=== PATIENT | female | born 1965 | race Caucasian/White ===

== ENCOUNTER → 2016-07-09 | Outpatient (REF) | payer BC | END | disposition home or self-care (01) | LOC: M LAB REF 16:39 | PROVIDERS: ATTEND Nurse Practitioner Family | DX: M79.1 Myalgia (principal) ==

== ENCOUNTER → 2016-07-26 | Outpatient (REF) | payer BC | END | disposition home or self-care (01) | LOC: M LAB REF 15:58 | PROVIDERS: ATTEND Nurse Practitioner Family | DX: M79.1 Myalgia (principal) ==

== ENCOUNTER → 2016-10-23 | Outpatient (REF) | payer BC | LOC: M LAB REF 09:07 | PROVIDERS: ATTEND Internal Medicine Medical Oncology | DX: D69.1 Qualitative platelet defects (principal) ==

== ENCOUNTER → 2016-11-10 | Outpatient (REF) | payer BC | LOC: M LAB REF 14:00 | PROVIDERS: ATTEND Physician Assistant | DX: T81.31XA Disruption of external operation (surgical) wound, not elsewhere classified, initial encounter (principal); X58.XXXA Exposure to other specified factors, initial encounter; Y92.9 Unspecified place or not applicable; Y93.9 Activity, unspecified; Y99.9 Unspecified external cause status ==

== ENCOUNTER → 2017-11-14 | Outpatient (REF) | payer BC ==
[2017-11-17 10:30] LABS: VITAMIN B12 LEVEL 653 PG/ML
== END ==
LOC: M LAB REF 17:51
DX: R41.3 Other amnesia (principal)
CPT/HCPCS: 82746

== ENCOUNTER → 2018-01-06 | Outpatient (CLI) | payer BC ==
[2018-01-06 09:12] LABS: ESTIMATED AVERAGE GLUCOSE 128 MG/DL (60-110); HEMOGLOBIN A1c 6.1 %
[2018-01-06 09:17] LABS: CHOLESTEROL LEVEL 205 MG/DL (<200); CHOLESTEROL RISK RATIO 4.361 (<5); GLUCOSE, FASTING 124 MG/DL (70-100); HDL CHOLESTEROL 47 MG/DL (>40); LDL CHOLESTEROL 95.6 MG/DL (<100); NON-HDL-C 158 MG/DL; TRIGLYCERIDES LEVEL 312 MG/DL (<150)
== END ==
LOC: M WUC 08:08
DX: Z79.899 Other long term (current) drug therapy (principal)
CPT/HCPCS: 82947

== ENCOUNTER 2018-04-19 16:38 | Emergency (ER) | payer BC ==
[2018-04-19] MEDS: KETOROLAC 30 MG/ML VIAL (J1885) IV (17:29)
[2018-04-19] MEDS: ONDANSETRON 4MG/2ML VIAL (J2405) IV (17:29)
[2018-04-19] MEDS: NS 1,000 ML IV (17:30)
[2018-04-19 17:55] LABS: BASO # 0.1 10^3/uL (0.0-0.2); BASO % 0.8 % (0.0-1.0); EOS # 0.4 10^3/uL (0.0-0.50); EOS % 3.9 % (0.0-3.0); HEMATOCRIT 38.6 % (36.0-47.0); IMMATURE GRANULOCYTE % 0.4 % (0-3.0); LYMPH % 19.3 % (24.0-44.0); MEAN CORPUSCULAR HEMOGLOBIN 33.4 pg (27.0-33.0); MEAN CORPUSCULAR HGB CONC 33.7 g/dl (32.0-36.5); MEAN CORPUSCULAR VOLUME 99.2 fl (80.0-96.0); MONO # 0.9 10^3/uL (0.0-0.8); MONO % 8.3 % (0.0-5.0); NEUTROPHILS # 7.1 10^3/uL (1.8-7.7); NEUTROPHILS % 67.3 % (36.0-66.0); PLATELET COUNT, AUTOMATED 296 10^3/uL (150-450); RED BLOOD COUNT 3.89 10^6/uL (4.00-5.40); RED CELL DISTRIBUTION WIDTH 13.3 % (11.5-14.5); WHITE BLOOD COUNT 10.6 10^3/uL (4.0-10.0)
[2018-04-19 18:13] LABS: ALBUMIN 3.8 GM/DL (3.2-5.2); ALBUMIN/GLOBULIN RATIO 1.09 (1.00-1.93); ALKALINE PHOSPHATASE 65 U/L (45-117); ALT/SGPT 64 U/L (12-78); ANION GAP 10 MEQ/L (8-16); AST/SGOT 41 U/L (7-37); BILIRUBIN,TOTAL 0.5 MG/DL (0.2-1.0); BLOOD UREA NITROGEN 19 MG/DL (7-18); CALCIUM LEVEL 8.9 MG/DL (8.5-10.1); CARBON DIOXIDE LEVEL 26 MEQ/L (21-32); CHLORIDE LEVEL 106 MEQ/L (98-107); CREATININE FOR GFR 0.87 MG/DL (0.55-1.30); GLOMERULAR FILTRATION RATE > 60.0 (>51); GLUCOSE, FASTING 110 MG/DL (70-100); POTASSIUM SERUM 3.6 MEQ/L (3.5-5.1); SODIUM LEVEL 142 MEQ/L (136-145); TOTAL PROTEIN 7.3 GM/DL (6.4-8.2)
== END 2018-04-19 19:35 | disposition home or self-care (01) ==
LOC: M ED 16:38
DX: G43.909 Migraine, unspecified, not intractable, without status migrainosus (principal); E86.0 Dehydration; E87.6 Hypokalemia; M79.7 Fibromyalgia; M31.5 Giant cell arteritis with polymyalgia rheumatica; Z88.1 Allergy status to other antibiotic agents; Z88.7 Allergy status to serum and vaccine; Z88.8 Allergy status to other drugs, medicaments and biological substances; Z79.899 Other long term (current) drug therapy
CPT/HCPCS: J2405

== ENCOUNTER 2018-05-29 09:33 | Day surgery (SDC) | payer BC ==
[2018-05-29] MEDS ORDERED: LR 1,000 ML IV ×2 (10:00→15:00)
[2018-05-29 10:49] LABS: BEDSIDE GLUCOSE 106 MG/DL (70-105)
[2018-05-29] MEDS ORDERED: LIDOCAINE 2% INJ 100 MG/5 ML SDV (FOR ANES.) As Ordered (12:30)
[2018-05-29] MEDS ORDERED: KETOROLAC 60 MG/2 ML VIAL (J1885) As Ordered (12:30)
[2018-05-29] MEDS ORDERED: fentaNYL 100 MCG/2 ML INJECTION (J3010) As Ordered (12:30)
[2018-05-29] MEDS ORDERED: ONDANSETRON 4MG/2ML VIAL (J2405) As Ordered (12:30)
[2018-05-29] MEDS ORDERED: MIDAZOLAM INJ 2 MG/2 ML VIAL (J2250) As Ordered (12:30)
[2018-05-29] MEDS ORDERED: PROPOFOL 200 MG/20 ML VIAL As Ordered ×5 (12:30→13:43)
[2018-05-29] MEDS: LIDOCAINE 2% MDV 20 ML VIAL As Ordered (12:31)
[2018-05-29] MEDS: BUPIVACAINE HCL 0.5% 30 ML VIAL As Ordered (12:31)
[2018-05-29] MEDS: NEOSPORIN GU IRRIG 20 ML VIAL As Ordered (13:02)
[2018-05-29] MEDS: BACITRACIN PWD 50,000 UNITS VIAL As Ordered (13:02)
[2018-05-29] MEDS: dexameTHASONE 4 MG/ML 1ML VIAL (J1100) As Ordered (14:20)
[2018-05-29] MEDS ORDERED: ONDANSETRON 4MG/2ML VIAL (J2405) IV (15:00)
[2018-05-29] MEDS: PERCOCET 5MG/325MG TAB PO (15:10)
== END 2018-05-29 16:27 | disposition home or self-care (01) ==
LOC: M SDC 09:33
DX: M20.11 Hallux valgus (acquired), right foot (principal); M79.671 Pain in right foot; T84.223A Displacement of internal fixation device of bones of foot and toes, initial encounter; E78.5 Hyperlipidemia, unspecified; E11.9 Type 2 diabetes mellitus without complications; E03.9 Hypothyroidism, unspecified; K21.9 Gastro-esophageal reflux disease without esophagitis; M79.7 Fibromyalgia; M35.3 Polymyalgia rheumatica; G47.30 Sleep apnea, unspecified; Z88.7 Allergy status to serum and vaccine; Z88.1 Allergy status to other antibiotic agents; Z79.899 Other long term (current) drug therapy
CPT/HCPCS: 28297

== ENCOUNTER → 2018-06-29 | Outpatient (CLI) | payer BC ==
[~2018-06-29] MED LIST: ACTE20IN SQ; ASPI1TAB PO; AZAT50TA2 PO; BRIM1OPD OU; BUPR300T34 PO; COSO1SOL3 OU; DULO1CAP2 PO; DULO1CAP3 PO; FISH7.5C PO; KLOR10TA76 PO; LEVO112T2 PO; METF-839 PO; METO10TA2 PO; MOBI4TAB PO; MONT10TA2 PO; OMEP20CA3 PO; PRAV80TA2 PO; PRED5TA PO; PROAAER10 INH; ROPI1TAB PO; TORS20TA2 PO; XALA0.007 OU; ZONI100C2 PO
--- NOTE | 2018-06-29 18:45 | REPMRS ---
Patient History The patient states she had a clinical breast exam in December 2017.Family history of breast cancer at age 50 or over in paternal grandmother. Digital Mammo Screening Bilat: June 29, 2018 - Exam #: [id number] Bilateral CC and MLO view(s) were taken. Technologist: Michelle Mehta, Technologist Prior study comparison: February 21, 2015, bilateral digital mammo screening bilat performed at [facility]. March 30, 2007, bilateral mammogram performed at [facility]. March 06, 2006, bilateral mammogram performed at [facility]. FINDINGS: There are scattered fibroglandular densities. There has been no change in the appearance of the mammogram from the prior studies. There is a mild amount of scattered fibroglandular density which is fairly symmetric. There is no interval development of dominant mass, architectural distortion, or clustered microcalcification suggestive of malignancy. 3-D tomosynthesis shows no additional findings. Assessment: BI-RADS/ACR category 1 mammogram. Negative. Recommendation Routine screening mammogram of both breasts in 1 year (for women over age 40). This patient's Lifetime Breast Cancer RIsk is estimated at 17.9 %. This mammogram was interpreted with the aid of an FDA-approved computer-aided dectection system. Electronically Signed By: Konrad Stout MD 06/29/18 [id number]
--- NOTE | 2018-07-13 15:25 | REP ---
Clinical: Abnormal uterine bleeding given history of cervical polyp. Technique: Transabdominal pelvic ultrasound followed by transvaginal examination for better evaluation of the endometrium and adnexa with color Doppler evaluation of the ovaries. Findings: Bladder is unremarkable and measures 7.4 x 5.2 x 5.8 cm . Heterogeneous anteverted uterus measures 7.7 x 3.2 x 3.8 cm. The endometrial complex measures 3.2 mm thickness. Few scattered incidental myometrial calcifications noted. No discrete uterine or endometrial abnormalities are appreciated. No obvious uterine or cervical polyp identified. Right ovary measures 2.5 x 2.4 x 1.5 cm and is without evidence for torsion. Left ovary measures 4.4 x 3.4 x 3.6 cm including follicles/physiologic cysts up to 1.4 cm and is without evidence for torsion. No pelvic fluid or adnexal mass lesion . Impression: 1. Heterogeneous anteverted uterus without significant abnormality appreciated. No obvious uterine or cervical polyp identified. 2. Bilateral ovaries are relatively normal in appearance and without obvious torsion or abnormality. Electronically Signed by Cholo Verdin MD 07/13/2018 03:17 P
== END ==
LOC: M RAD 11:03
PROVIDERS: ATTEND Obstetrics & Gynecology
DX: Z12.31 Encounter for screening mammogram for malignant neoplasm of breast (principal); N93.9 Abnormal uterine and vaginal bleeding, unspecified

== ENCOUNTER 2018-07-20 08:06 | Day surgery (SDC) | payer BC ==
--- NOTE | 2018-07-15 07:30 | CR ---
DATE OF CONSULTATION: 07/14/[address] Arellano for cervical polyp biopsy on 07/20/2018. Dear Dr. Arellano: Than you for asking me to see Ms. Allyson Rios in consultation. She is as you know a 53-year-old female with a history of polymyalgia rheumatica/giant cell arteritis, hyperlipidemia and gastroesophageal reflux disease, presenting in her usual state of health prior to her cervical polyp biopsy. The patient reports that she is up-to-date with rheumatology followup. She has been weaned off of prednisone. She does continue on Actemra injection weekly and Imuran 100 mg by mouth twice a day. She has been instructed to use these perioperatively by rheumatology. The patient has known obstructive sleep apnea (LIO), she is compliant with this. Patient is status post right bunionectomy with Dr. Bennett on 05/29/2018 and has had a good recovery returning back to work in early July. The patient has known gastroesophageal reflux disease. She reports clinically asymptomatic on present medications. The patient has prediabetes. She denies polyuria, polyphagia or polydipsia. The patient has transaminitis thought to be related to methotrexate. She does follow with a GI doctor. REVIEW OF SYSTEMS: Otherwise negative. Denying any fevers or chills, chest pain or shortness of breath, nausea or vomiting. PAST MEDICAL HISTORY: 1. PMR/giant cell arteritis. 2. Meningioma September 2014. 3. Osteoarthritis, degenerative joint disease. 4. Obstructive sleep apnea (LIO), on C-PAP. 5. Deep vein thrombosis (DVT) status post warfarin treatment for 1- to 1-1/2 years. 6. Tobacco abuse times 10 years. 7. Depression. 8. Gastroesophageal reflux disease. 9. Migraines. 10. Obesity. 11. Pre diabetes. 12. Hyperlipidemia. 13. Hypothyroid. 14. Seasonal allergies. 15. Venous insufficiency. 16. Restless legs syndrome. 17. Glaucoma. 18. Acne. 19. Transaminitis thought to be secondary to methotrexate. 20. Status post bunionectomy 1997 and 05/29/2018. 21. Occipital neuropathy in [address] Noland. 22. Allergic rhinitis, on immunotherapy. MEDICATIONS: - Actemra injection weekly - allergy injections regularly - baby aspirin daily - bupropion XL 300 mg every a.m. - Cosopt eye drops - duloxetine 30 mg daily - Eletriptan 20 mg as needed for migraine - fish oil 2 pills twice a day - Latanoprost eye drops 1 drop both eyes at bedtime - levothyroxine 112 mcg daily - magnesium 400 mg twice a day - metformin 500 mg daily - metoclopramide 10 mg three times a day as needed - meloxicam 7.5 mg daily - Montelukast 10 mg daily - omeprazole 20 mg daily - potassium chloride 10 mEq daily - pravastatin 80 mg daily - ProAir as needed - ropinirole 1 mg three times a day - torsemide 20 mg 3 tablets twice a day - vitamin B2 100 mg 2 pills twice a day - vitamin D3 2000 international units daily - zonisamide 100 mg 3 pills at bedtime - Zyrtec 100 mg 3 pills at bedtime - Zyrtec 10 mg 1 to 3 days a month with allergy injections. ALLERGIES: - TOPAMAX - ERYTHROMYCIN FAMILY HISTORY: Father of lung cancer and had hypertension and Parkinson's. Mother of kidney cancer. She had hyperlipidemia, hypertension, glaucoma and varicose veins. A sister had lymphoma. Grandparents had colon cancer, breast cancer, stroke, Parkinson's, hyperlipidemia, atrial fibrillation. SOCIAL HISTORY: The patient is single. No children. Former smoker, quit at age 39. Occasional alcohol. PHYSICAL EXAMINATION: Obese female in no acute distress. Vital Signs: Weight 282, which is down 10 pounds in about 2 months. Her body mass index (BMI) is 49. O2 sat after exertion 93%. Blood pressure 126/72 with a heart rate of 72. Head is normocephalic. Neck is supple. Pupils equal, reactive to light. Extraocular movements are intact. She has no cervical lymphadenopathy, JVD or thyromegaly. Respiratory: Clear to auscultation, resonant to percussion. Breast exam deferred. Cardiovascular: Regular rate and rhythm. No murmur, rub or gallop. Abdomen: Normoactive bowel sounds, soft, nontender. No hepatosplenomegaly. Gynecologic deferred. Extremities: No cyanosis, clubbing or edema. Neurologic: Alert and oriented. Cranial nerves are intact. LABORATORY DATA: From 04/19/2018, EKG normal sinus rhythm, rate 81, axis of 18 degrees, normal R-wave progression, no atrial or ventricular hypertrophy, no pathologic Q-waves, normal CA, QRS and QTC, unchanged from previous EKG. Laboratories from 05/20/2018, the patient had a CBC with an H/H of 11.8/35.1. Her A1c was 6.4. Her med profile was normal. Her liver panel was normal except for an AST of 44. Her TSH was normal at 2.38. IMPRESSION: Ms. Allyson Rios is a 53-year-old female with multiple medical problems. Cardiovascular risk factors are positive for hyperglycemia, hyperlipidemia and age. The patient has no signs or symptoms indicative of cardiovascular ischemia and is felt to be optimized and at low risk for cardiovascular complications from the proposed surgical intervention which can be further minimized by the following. PROBLEMS: 1. PMR. Continue Actemra and Imuran a.m. of surgery, but hold the Imuran a.m. of morning. She is holding meloxicam 1 week prior to surgical intervention. 2. Migraines. She will take bupropion and duloxetine a.m. of surgery. 3. Restless leg syndrome. She will take ropinirole morning of surgery. 4. Depression. She will take her bupropion and duloxetine a.m. of surgery. 5. Dyspepsia. She will take her omeprazole a.m. of surgery. 6. Hyperlipidemia. Continue pravastatin perioperatively. Her fish oil and aspirin are hold 7 days before surgery. 7. Hyperglycemia. She will hold her metformin 2 days before surgical intervention. 8. Edema. Diuretic, magnesium and potassium on hold prior to surgical intervention. 9. Obstructive sleep apnea. I have her to bring her C-PAP with her to surgical intervention. 10. Status post bunionectomy with good results. Thank you very much for this consultation. Please call with any questions or concerns.
[~2018-07-20] VITALS: Ht 160 cm; Wt 125.6 kg
[~2018-07-20 08:06] MED LIST changes: +LR 1,000 ML IV ONE
[2018-07-20] MEDS ORDERED: LIDOCAINE 2% INJ 100 MG/5 ML SDV (FOR ANES.) As Ordered ONE (08:08)
[2018-07-20] MEDS ORDERED: PROPOFOL 200 MG/20 ML VIAL As Ordered ONE (08:08)
[2018-07-20] MEDS ORDERED: MIDAZOLAM INJ 2 MG/2 ML VIAL (J2250) As Ordered ONE (08:09)
[2018-07-20] MEDS ORDERED: fentaNYL 100 MCG/2 ML INJECTION (J3010) As Ordered ONE ×2 (08:09→10:29)
[2018-07-20 08:34] LABS: HEMATOCRIT 30.4 % (36.0-47.0); HEMOGLOBIN 9.7 g/dl (12.0-15.5); MEAN CORPUSCULAR HGB CONC 31.9 g/dl (32.0-36.5); MEAN CORPUSCULAR VOLUME 100.3 fl (80.0-96.0); PLATELET COUNT, AUTOMATED 407 10^3/uL (150-450); RED BLOOD COUNT 3.03 10^6/uL (4.00-5.40); WHITE BLOOD COUNT 11.3 10^3/uL (4.0-10.0)
[2018-07-20] MEDS ORDERED: SILVER NITRATE APPLICATOR As Ordered ONE ×2 (09:20→09:40)
[2018-07-20] MEDS ORDERED: KETOROLAC 60 MG/2 ML VIAL (J1885) As Ordered ONE (10:03)
[2018-07-20] MEDS ORDERED: METOCLOPRAMIDE INJ 10MG/2ML VIAL (J2765) As Ordered ONE (10:03)
[2018-07-20] MEDS ORDERED: ONDANSETRON 4MG/2ML VIAL (J2405) As Ordered ONE (10:03)
[2018-07-20] MEDS ORDERED: LIDOCAINE W/EPINEPHRINE 1% 20ML VIAL As Ordered ONE (10:08)
[2018-07-20] MEDS ORDERED: PERCOCET 5MG/325MG TAB PO PRN (11:00)
[2018-07-20] MEDS ORDERED: fentaNYL 100 MCG/2 ML INJECTION (J3010) IV PRN (11:00)
[2018-07-20] MEDS ORDERED: ONDANSETRON 4MG/2ML VIAL (J2405) IV PRN (11:00)
[2018-07-20] MEDS ORDERED: LR 1,000 ML IV SCH (11:00)
[2018-07-20 12:00] VITALS: BP 135/67
--- NOTE | 2018-07-21 07:03 | RO ---
DATE OF PROCEDURE: 07/20/2018 PREOPERATIVE DIAGNOSIS: Abnormal uterine bleeding/endocervical polypoid mass. POSTOPERATIVE DIAGNOSIS: Abnormal uterine bleeding/endocervical polypoid mass. PROCEDURE PERFORMED: 1. Endocervical mass excision/polypectomy. 2. Hysteroscopy and dilation and curettage. 3. Removal of ParaGard intrauterine device (IUD). SURGEON: Dr. Angel Arellano COMMUNICATIONS CONSULTANT: None. ANESTHESIA: General via LMA. SPECIMENS TO PATHOLOGY: 1. Endocervical mass. 2. Endometrial curettings. ESTIMATED BLOOD LOSS: 100 mL. FLUIDS REPLACED: Lactated Ringers 800 mL. DRAINS: In-and-out catheter with 50 mL of urine output. COMPLICATIONS: None. PREOPERATIVE ANTIBIOTICS: None indicated. INTRAOPERATIVE FINDINGS: 1. 2-3 cm endocervical polypoid mass, smooth appearing, with classical findings consistent with benign polyp. 2. IUD strings easily visualized after mass excision, IUD easily grasped and removed. 3. Hysteroscopic findings of normal intrauterine cavity, no additional intrauterine masses, scant light amount of endometrial tissue noted consistent with patient's age of 53. INDICATION: The patient is a 53-year-old with irregular bleeding/abnormal uterine bleeding. Physical exam in the office revealed a very large endocervical polypoid mass with a wide base. It was decided to proceed with endocervical mass excision/polypectomy under anesthesia given its wide base and size. The patient also requested removal of the IUD and inspection of the endometrial cavity for any additional growing polyps/masses. DESCRIPTION OF PROCEDURE: The patient was counseled and consented on the risks, benefits, indications and alternatives of the procedure. Informed consent was obtained. She was taken to the operating room with an IV running and placed on the operating table in dorsal supine position. General anesthesia was administered and the airway secured without any difficulty. She was then placed in the high lithotomy position. She was prepared and draped in normal sterile fashion. A time-out was performed per protocol. An in-and-out catheter was placed to drain the bladder. A sterile speculum was placed with good visualization of the cervix/mass. The mass was injected at the base with 1% lidocaine with epinephrine, approximately 10 mL was injected. A #15 blade was used to excise the base of the mass, thus removing the mass. It did extend into the endocervical canal. After excision of the mass which was removed entirely intact, the cervix was in need of repair. A #0 Vicryl stitch was used to stop the bleeding at the 11 o'clock position of the cervix and at the 7 o'clock position. #0 Vicryl stitches were able to achieve hemostasis. Small bleeding raw edges were cauterized with the Bovie. Excellent hemostasis was noted. The cervix was then sequentially dilated with Jhonny dilators. A hysteroscope was placed transcervically into the intrauterine cavity with the findings noted above. The IUD strings were easily visualized, grasped with ring forceps, traction was applied and the IUD was easily removed. A light curettage was performed in the intrauterine cavity with minimal scant tissue obtained consistent with her age. Minimal bleeding from the cervix and from the cervical os was noted. Single-tooth tenaculum sites were hemostatic. All instruments were removed from vagina. Sponge, lap, needle and instrument counts were correct. The patient tolerated the entire procedure very well. She was transferred to the postanesthesia care unit (PACU in good and stable condition.
== END 2018-07-20 12:08 | disposition home or self-care (01) ==
LOC: M SDC 08:06
PROVIDERS: ATTEND Obstetrics & Gynecology
DX: N92.6 Irregular menstruation, unspecified (principal); N84.0 Polyp of corpus uteri; E03.9 Hypothyroidism, unspecified; K21.9 Gastro-esophageal reflux disease without esophagitis; D64.9 Anemia, unspecified; M35.3 Polymyalgia rheumatica; M79.7 Fibromyalgia; F32.9 Major depressive disorder, single episode, unspecified; G47.30 Sleep apnea, unspecified; G43.909 Migraine, unspecified, not intractable, without status migrainosus; Z86.711 Personal history of pulmonary embolism; Z79.84 Long term (current) use of oral hypoglycemic drugs; Z79.82 Long term (current) use of aspirin; Z79.899 Other long term (current) drug therapy
CPT/HCPCS: 36415; 58301; 58558; 85027; 86850; 86900; 86901; 88304; 88305; J1885; J2250; J2405; J2765; J3010

== ENCOUNTER → 2018-08-26 | Outpatient (CLI) | payer BC ==
[~2018-08-26] MED LIST changes: -LR 1,000 ML IV ONE
== END ==
LOC: M SMT 13:46
PROVIDERS: ATTEND Advanced Practice Midwife
DX: Z13.79 Encounter for other screening for genetic and chromosomal anomalies (principal)

== ENCOUNTER → 2018-09-15 | Outpatient (CLI) | payer BC ==
[~2018-09-15] MED LIST changes: -ASPI1TAB PO; +ASPI81TA26 PO
[2018-09-15 16:54] LABS: BLOOD UREA NITROGEN 19 MG/DL (7-18); CREATININE FOR GFR 0.94 MG/DL (0.55-1.30); GLOMERULAR FILTRATION RATE > 60.0 (>51)
== END ==
LOC: M WUC 14:13
PROVIDERS: ATTEND Psychiatry & Neurology Neurology
DX: I10 Essential (primary) hypertension (principal)

== ENCOUNTER → 2018-09-22 | Outpatient (CLI) | payer BC ==
--- NOTE | 2018-09-25 07:57 | SLEEPCENT ---
DATE OF PROCEDURE: 09/22/2018 ORDERING PROVIDER: LUZ Brown, copy to Dominique Bradford NP. INTERPRETATION: Nocturnal polysomnography was performed for re-titration of pressure therapy in this patient with known obstructive sleep apnea syndrome experiencing excessive somnolence. 7 hours and 58 minutes data were reviewed. There were 401 minutes of sleep identified. Sleep latency was short at 5.5 minutes. The patient did not achieve REM sleep. Sleep architecture was very fragmented with poor sleep progression and periods of wake resulting in reduced sleep efficiency of 85.9%. The electrocardiogram showed a sinus rhythm with an average heart rate of 68 beats per minute. EEG showed coarsening in background frequent spontaneous arousals. Respiratory events were fully palliated with C-PAP of pressure of +16. Significant limb activity noted with four to five trains of 30 events. Limb movement arousal index was 19.8. IMPRESSION: Obstructive sleep apnea syndrome (G47.33) pressure. 2. Periodic limb movement disorder (G47.61). Limb movement arousal index 19.8. RECOMMENDATIONS: Nightly use of pressure therapy at 16 cm is sufficient to address the patient's obstructive respiratory events. Interventions to reduce the frequency arousal from limb activity may be helpful. Changes noted in the EEG suggest medications may be affecting the continuity of sleep as well.
== END ==
LOC: M SLEEP 19:53
PROVIDERS: ATTEND Nurse Practitioner Adult Health
DX: G47.33 Obstructive sleep apnea (adult) (pediatric) (principal); G47.61 Periodic limb movement disorder

== ENCOUNTER → 2018-11-27 | Outpatient (REF) | payer BC ==
[~2018-11-27] MED LIST changes: +MIRA0.254 PO
== END ==
LOC: M LAB REF 16:50
PROVIDERS: ATTEND Physician Assistant
DX: J02.9 Acute pharyngitis, unspecified (principal)

== ENCOUNTER 2018-12-07 12:07 | Day surgery (SDC) | payer BC ==
[~2018-12-07] VITALS: Ht 157.5 cm; Wt 123.4 kg
[2018-12-07] MEDS ORDERED: PROPOFOL 200 MG/20 ML VIAL As Ordered ONE (12:29)
[2018-12-07] MEDS ORDERED: LIDOCAINE 2% INJ 100 MG/5 ML SDV (FOR ANES.) As Ordered ONE (12:29)
[2018-12-07] MEDS ORDERED: NS 1,000 ML IV SCH (12:30)
--- NOTE | 2018-12-07 13:42 | ROOR ---
Patient Name: Allyson Rios Procedure Date: 12/07/2018 12:51 PM Date of : 1965 Age: 53 Room: [facility] Gender: Female Note Status: Finalized Procedure: Upper GI endoscopy Indications: Heartburn, Suspected gastro-esophageal reflux disease Providers: Artemio Dyson MD Referring MD: Effie PLASENCIA MD Requesting Provider: Medicines: Monitored Anesthesia Care Complications: No immediate complications. Procedure: Pre-Anesthesia Assessment: - Prior to the procedure, a History and Physical was performed, and patient medications and allergies were reviewed. The patient is competent. The risks and benefits of the procedure and the sedation options and risks were discussed with the patient. All questions were answered and informed consent was obtained. Patient identification and proposed procedure were verified by the physician, the nurse and the anesthesiologist in the procedure room. Mental Status Examination: alert and oriented. Airway Examination: normal oropharyngeal airway and neck mobility. Respiratory Examination: clear to auscultation. CV Examination: normal. Prophylactic Antibiotics: The patient does not require prophylactic antibiotics. Prior Anticoagulants: The patient has taken no previous anticoagulant or antiplatelet agents. ASA Grade Assessment: II - A patient with mild systemic disease. After reviewing the risks and benefits, the patient was deemed in satisfactory condition to undergo the procedure. The anesthesia plan was to use monitored anesthesia care (MAC). Immediately prior to administration of medications, the patient was re-assessed for adequacy to receive sedatives. The heart rate, respiratory rate, oxygen saturations, blood pressure, adequacy of pulmonary ventilation, and response to care were monitored throughout the procedure. The physical status of the patient was re-assessed after the procedure. The Endoscope was introduced through the mouth, and advanced to the second part of duodenum. The upper GI endoscopy was accomplished without difficulty. The patient tolerated the procedure well. Findings: The Z-line was irregular and was found 36 cm from the incisors. LA Grade A (one or more mucosal breaks less than 5 mm, not extending between tops of 2 mucosal folds) esophagitis with no bleeding was found in the distal esophagus. Biopsies were taken with a cold forceps for histology. Verification of patient identification for the specimen was done by the physician and nurse using the patient's name, date and medical record number. Estimated blood loss was minimal. Patchy moderate inflammation characterized by erythema, friability and granularity was found in the gastric body and in the gastric antrum. Biopsies were taken with a cold forceps for Helicobacter pylori testing. The duodenal bulb and second portion of the duodenum were normal. Biopsies for histology were taken with a cold forceps for evaluation of celiac disease. Impression: - Z-line irregular, 36 cm from the incisors. - LA Grade A reflux esophagitis. Biopsied. - Gastritis. Biopsied. - Normal duodenal bulb and second portion of the duodenum. Biopsied. Recommendation: - Patient has a contact number available for emergencies. The signs and symptoms of potential delayed complications were discussed with the patient. Return to normal activities tomorrow. Written discharge instructions were provided to the patient. - Resume previous diet. - Continue present medications. - Follow an antireflux regimen. - Await pathology results. - Based on the biopsy results you will receive a phone call from GI clinic in 2-3 weeks to review the pathology results AND/OR your results will be faxed to your Primary care physician. - Return to primary care physician. Artemio Dyson MD Artemio Dyson MD 12/07/2018 1:41:29 PM Electronically signed by Artemio Dyson MD Number of Addenda: 0 Note Initiated On: 12/07/2018 12:51 PM Estimated Blood Loss: Estimated blood loss was minimal.
--- NOTE | 2018-12-07 13:48 | ROOR ---
Patient Name: Allyson Rios Procedure Date: 12/07/2018 12:52 PM Date of : 1965 Age: 53 Room: [facility] Gender: Female Note Status: Finalized Procedure: Colonoscopy Indications: Colon cancer screening in patient at increased risk: Family history of colorectal cancer in multiple 2nd degree relatives Providers: Artemio Dyson MD Referring MD: Effie PLASENCIA MD Requesting Provider: Medicines: Monitored Anesthesia Care Complications: No immediate complications. Procedure: Pre-Anesthesia Assessment: - Prior to the procedure, a History and Physical was performed, and patient medications and allergies were reviewed. The patient is competent. The risks and benefits of the procedure and the sedation options and risks were discussed with the patient. All questions were answered and informed consent was obtained. Patient identification and proposed procedure were verified by the physician, the nurse and the anesthesiologist in the procedure room. Mental Status Examination: alert and oriented. Airway Examination: normal oropharyngeal airway and neck mobility. Respiratory Examination: clear to auscultation. CV Examination: normal. Prophylactic Antibiotics: The patient does not require prophylactic antibiotics. Prior Anticoagulants: The patient has taken no previous anticoagulant or antiplatelet agents. ASA Grade Assessment: II - A patient with mild systemic disease. After reviewing the risks and benefits, the patient was deemed in satisfactory condition to undergo the procedure. The anesthesia plan was to use monitored anesthesia care (MAC). Immediately prior to administration of medications, the patient was re-assessed for adequacy to receive sedatives. The heart rate, respiratory rate, oxygen saturations, blood pressure, adequacy of pulmonary ventilation, and response to care were monitored throughout the procedure. The physical status of the patient was re-assessed after the procedure. The Colonoscope was introduced through the anus and advanced to the terminal ileum, with identification of the appendiceal orifice and IC valve. The colonoscopy was performed without difficulty. The patient tolerated the procedure well. The quality of the bowel preparation was good. The terminal ileum, ileocecal valve, appendiceal orifice, and rectum were photographed. Scope insertion time was 3 minutes. Scope withdrawal time was 8 minutes. The total duration of the procedure was 11 minutes. Findings: The perianal and digital rectal examinations were normal. The terminal ileum contained a few four mm ulcers. No bleeding was present. No stigmata of recent bleeding were seen. Biopsies were taken with a cold forceps for histology. Verification of patient identification for the specimen was done by the physician and nurse using the patient's name, date and medical record number. Estimated blood loss was minimal. A 3 mm polyp was found in the rectum. The polyp was sessile. The polyp was removed with a cold biopsy forceps. Resection and retrieval were complete. Non-bleeding external and internal hemorrhoids were found during endoscopy. The hemorrhoids were small. Retroflexion in the rectum was not performed due to anatomy. Impression: - A few ulcers in the terminal ileum. Biopsied. - One 3 mm polyp in the rectum, removed with a cold biopsy forceps. Resected and retrieved. - Non-bleeding external and internal hemorrhoids. Recommendation: - Patient has a contact number available for emergencies. The signs and symptoms of potential delayed complications were discussed with the patient. Return to normal activities tomorrow. Written discharge instructions were provided to the patient. - High fiber diet. - Continue present medications. - Await pathology results. - Repeat colonoscopy in 5 years for surveillance based on pathology results. - Based on the biopsy results you will receive a phone call from GI clinic in 2-3 weeks to review the pathology results AND/OR your results will be faxed to your Primary care physician. - Return to GI clinic in 5 years. - Return to primary care physician. Artemio Dyson MD Artemio Dyson MD 12/07/2018 1:47:39 PM Electronically signed by Artemio Dyson MD Number of Addenda: 0 Note Initiated On: 12/07/2018 12:52 PM Estimated Blood Loss: Estimated blood loss was minimal.
[2018-12-07 14:18] VITALS: BP 123/64
== END 2018-12-07 14:20 | disposition home or self-care (01) ==
LOC: M OPP 12:07
PROVIDERS: ATTEND Internal Medicine Gastroenterology
DX: K62.1 Rectal polyp (principal); K64.8 Other hemorrhoids; K63.3 Ulcer of intestine; K22.8 Other specified diseases of esophagus; K21.0 Gastro-esophageal reflux disease with esophagitis; K29.70 Gastritis, unspecified, without bleeding; R12 Heartburn; Z12.11 Encounter for screening for malignant neoplasm of colon; Z80.0 Family history of malignant neoplasm of digestive organs

== ENCOUNTER 2018-12-30 11:01 | Day surgery (SDC) | payer BC ==
[~2018-12-30] VITALS: Ht 157.5 cm; Wt 124.7 kg
[~2018-12-30 11:01] MED LIST changes: +ACETAMINOPHEN 325 MG TAB PO PRN; +BSS with VANC/TOB/EPI for EYE CASES IR ONE; -BUPR300T34 PO; +BUPR300T92 PO; +CEFUROXIME 1MG/0.1ML INTRACAMERAL INJ As Ordered ONE; +CYCLOPENTOLATE 2% OPHTH SOLN 2ML BTL OD ONE; -DULO1CAP2 PO; -DULO1CAP3 PO; +DULO1CAP5 PO; +DULO1CAP6 PO; +HEALON DUET PRO(HEALON 10MG/ML 0.55ML & HEALON ENDOCOAT 30MG/ML 0.85ML) As Ordered ONE; +LIDOCAINE 1% MDV 20ML VIAL SQ PRN; +LIDOCAINE 1% SDV 5 ML VIAL As Ordered ONE; +LIDOCAINE 3.5 % 1ML OPHTH TOPICAL GEL OU ONE; +MIDAZOLAM INJ 2 MG/2 ML VIAL (J2250) As Ordered ONE; +OFLOXACIN 0.3 % (OCUFLOX) OPTH SOL 5ML OD ONE; +OMEP1CAP73 PO; -OMEP20CA3 PO; +PHENYLEPHRINE 2.5% OPHTH SOL 2ML OD ONE; +PHENYLEPHRINE HCL 10 % OPHTH. SOL 5ML OD PRN; +POVIDONE-IODINE 5% OPHTH PREP SOL 30ML As Ordered ONE; +PROPARACAINE 0.5% OPHTH SOL 15ML OD PRN; +TROPICAMIDE 1% OPHTH SOLN 2ML OD ONE; +ZONI100C17 PO; -ZONI100C2 PO
[2018-12-30] MEDS ORDERED: fentaNYL 100 MCG/2 ML INJECTION (J3010) As Ordered ONE (11:48)
[2018-12-30] MEDS ORDERED: AcetaZOLAMIDE 500MG INJECTION (J1120) As Ordered ONE (11:59)
[2018-12-30] MEDS ORDERED: HEALON DUET PRO(HEALON 10MG/ML 0.55ML & HEALON ENDOCOAT 30MG/ML 0.85ML) As Ordered ONE (12:06)
[2018-12-30] MEDS ORDERED: ACETYLCHOLINE OPHTH SOLN 1% 2ML (MIOCHOL-E) As Ordered ONE (12:16)
[2018-12-30] MEDS ORDERED: TRIAMCINOLONE PRES FR 40 MG/ML 1ML(TRIESENCE)(OR EYE ONLY)(J3300 PER 1MG) As Ordered ONE (12:40)
[2018-12-30] MEDS ORDERED: KETOROLAC 0.5% OPHTH SOLN OD ONE (12:45)
[2018-12-30] MEDS ORDERED: AcetaZOLAMIDE 500 MG ER CAP As Ordered ONE (12:45)
[2018-12-30] MEDS ORDERED: AcetaZOLAMIDE 500 MG ER CAP PO ONE (12:45)
[2018-12-30] MEDS ORDERED: TRIMETHOBENZAMIDE 300 MG CAP PO PRN (12:45)
[2018-12-30 13:20] VITALS: BP 138/76
--- NOTE | 2018-12-31 23:33 | RO ---
DATE OF PROCEDURE: 12/30/2018 PREPROCEDURE DIAGNOSIS: Glaucoma, cataract, and miosis of the right eye. POSTPROCEDURE DIAGNOSIS: Glaucoma, cataract, and miosis of the right eye. Increased intravitreal pressure. PROCEDURE: Phacoemulsification with intraocular lens implantation with the help of Optiwave Refractive Analysis (ORA), placement of Malyugin ring, endocyclophotocoagulation, and placement of iStent inject. SURGEON: Dr. Karl Amaral PLATINUM AND PALLADIUM KETTLE TENDER: ANESTHESIA: DESCRIPTION OF PROCEDURE: The patient was brought to the operating room and laid in supine position. The eye was prepped and draped in a sterile fashion for ophthalmic surgery and a lid speculum was placed. A sideport incision was made and EndoCoat was injected into the anterior chamber, following which temporal clear corneal incision was made and Healon was placed in the anterior chamber. Because of small pupil, 7 mm Malyugin ring was then used to dilate the pupil with the help of the Malyugin hook. Capsulorrhexis was then done with the help of the cystotome and capsulorrhexis forceps followed by hydrodissection with balanced salt solution. Phacoemulsification was then done in a [id number] method within the capsular bag. Towards the end of the phacoemulsification, it was noted that the patient's intraocular vitreous pressure was very positive, and the anterior chamber was shallowing. The bottle height for IV irrigation was increased to max and intravenous 500 mg of Diamox was injected. Cortical cleanup was finished, following which Healon was placed in the capsular bag, and the eye was observed. As the eye deepened and as the anterior chamber deepened, multiple ORA calculations were taken . Intraocular lens power 21.5 was chosen, which was a Toric lens. Patient's eye was premarked in the preoperative area with sterile marker. Intraocular lens was injected and rotated into the premarked axis. Following this, the Malyugin ring was removed with the help of the Malyugin hook and endocyclophotocoagulation was done after the Healon was injected into the ciliary sulcus to visualize the ciliary processes, 280 degrees of the ciliary processes were treated. Good results were noted as seen by shrinking ciliary processes on the video screen, and this was done with the help of the video probe. Following this, the patient's head was turned away from the surgeon and under high magnification, Healon was placed into the anterior chamber nasally to visualize the trabecular meshwork with the help of the Gonio lens. IStent injects were then placed 2 or 3 clock hours apart nasally. Good placement was appreciated. Excess viscoelastic was removed and a #10-0 nylon suture was placed temporally because of the shallow anterior chamber. Intracameral cefuroxime was given at the end of the case. Lid speculum was removed, patient discharged to the recovery room and postoperative instructions given. Edited 01/01/2019 [facility] ADDENDUM: Because of myosis, Malyugin ring was placed prior to capsulorrhexis with the help of the Malyugin hook and then was subsequently removed after placement of the intraocular lens with the help of the hook. Addendum dictated: 12/31/2018 1031 Addendum transcribed: 01/01/2019 1621 todd
== END 2018-12-30 13:33 | disposition home or self-care (01) ==
LOC: M SDC 11:01
PROVIDERS: ATTEND Ophthalmology
DX: H25.9 Unspecified age-related cataract (principal); H57.03 Miosis; H40.811 Glaucoma with increased episcleral venous pressure, right eye; E11.9 Type 2 diabetes mellitus without complications; E78.5 Hyperlipidemia, unspecified; E03.9 Hypothyroidism, unspecified; M79.7 Fibromyalgia; G47.30 Sleep apnea, unspecified; Z79.84 Long term (current) use of oral hypoglycemic drugs; Z79.82 Long term (current) use of aspirin; Z79.899 Other long term (current) drug therapy; K21.9 Gastro-esophageal reflux disease without esophagitis; F32.9 Major depressive disorder, single episode, unspecified; Z88.1 Allergy status to other antibiotic agents
CPT/HCPCS: 66183; 66711; 66982; 92015; C1783; J1120; J2250; J3010; J3300

== ENCOUNTER 2019-01-06 09:51 | Day surgery (SDC) | payer BC ==
[~2019-01-06] VITALS: Ht 160 cm; Wt 128.4 kg
[~2019-01-06 09:51] MED LIST changes: +BUPR300T34 PO; -BUPR300T92 PO; -CYCLOPENTOLATE 2% OPHTH SOLN 2ML BTL OD ONE; +CYCLOPENTOLATE 2% OPHTH SOLN 2ML BTL OS ONE; -MIDAZOLAM INJ 2 MG/2 ML VIAL (J2250) As Ordered ONE; -OFLOXACIN 0.3 % (OCUFLOX) OPTH SOL 5ML OD ONE; +OFLOXACIN 0.3 % (OCUFLOX) OPTH SOL 5ML OS ONE; -OMEP1CAP73 PO; +OMEP20CA4 PO; -PHENYLEPHRINE 2.5% OPHTH SOL 2ML OD ONE; +PHENYLEPHRINE 2.5% OPHTH SOL 2ML OS ONE; -PHENYLEPHRINE HCL 10 % OPHTH. SOL 5ML OD PRN; +PHENYLEPHRINE HCL 10 % OPHTH. SOL 5ML OS PRN; -PROPARACAINE 0.5% OPHTH SOL 15ML OD PRN; +PROPARACAINE 0.5% OPHTH SOL 15ML OS PRN; +TRIAMCINOLONE PRES FR 40 MG/ML 1ML(TRIESENCE)(OR EYE ONLY)(J3300 PER 1MG) As Ordered ONE; -TROPICAMIDE 1% OPHTH SOLN 2ML OD ONE; +TROPICAMIDE 1% OPHTH SOLN 2ML OS ONE; -ZONI100C17 PO; +ZONI100C2 PO
[2019-01-06] MEDS ORDERED: MIDAZOLAM INJ 2 MG/2 ML VIAL (J2250) As Ordered ONE (11:14)
[2019-01-06] MEDS ORDERED: fentaNYL 100 MCG/2 ML INJECTION (J3010) As Ordered ONE (11:15)
[2019-01-06] MEDS ORDERED: POVIDONE-IODINE 5% OPHTH PREP SOL 30ML As Ordered ONE (11:30)
[2019-01-06] MEDS ORDERED: HEALON DUET PRO(HEALON 10MG/ML 0.55ML & HEALON ENDOCOAT 30MG/ML 0.85ML) As Ordered ONE (11:47)
[2019-01-06] MEDS ORDERED: ACETYLCHOLINE OPHTH SOLN 1% 2ML (MIOCHOL-E) As Ordered ONE (11:57)
[2019-01-06] MEDS ORDERED: AcetaZOLAMIDE 500 MG ER CAP As Ordered ONE (12:26)
[2019-01-06] MEDS ORDERED: KETOROLAC 0.5% OPHTH SOLN OS ONE (12:30)
[2019-01-06] MEDS ORDERED: AcetaZOLAMIDE 500 MG ER CAP PO ONE (12:30)
[2019-01-06] MEDS ORDERED: TRIMETHOBENZAMIDE 300 MG CAP PO PRN (12:30)
[2019-01-06 12:34] VITALS: BP 146/80
== END 2019-01-06 12:35 | disposition home or self-care (01) ==
LOC: M SDC 09:51
PROVIDERS: ATTEND Ophthalmology
DX: H26.9 Unspecified cataract (principal); H40.812 Glaucoma with increased episcleral venous pressure, left eye; E11.9 Type 2 diabetes mellitus without complications; E78.5 Hyperlipidemia, unspecified; G47.30 Sleep apnea, unspecified; Z88.1 Allergy status to other antibiotic agents; Z88.8 Allergy status to other drugs, medicaments and biological substances; Z79.899 Other long term (current) drug therapy; M79.7 Fibromyalgia; M35.3 Polymyalgia rheumatica; F32.9 Major depressive disorder, single episode, unspecified; Z86.711 Personal history of pulmonary embolism; Z79.84 Long term (current) use of oral hypoglycemic drugs
CPT/HCPCS: 66183; 66711; 66984; 92015; C1783; J2250; J3010

== ENCOUNTER → 2019-04-28 | Outpatient (CLI) | payer BC ==
[~2019-04-28] MED LIST changes: -ACETAMINOPHEN 325 MG TAB PO PRN; -BSS with VANC/TOB/EPI for EYE CASES IR ONE; -CEFUROXIME 1MG/0.1ML INTRACAMERAL INJ As Ordered ONE; -CYCLOPENTOLATE 2% OPHTH SOLN 2ML BTL OS ONE; -HEALON DUET PRO(HEALON 10MG/ML 0.55ML & HEALON ENDOCOAT 30MG/ML 0.85ML) As Ordered ONE; -LIDOCAINE 1% MDV 20ML VIAL SQ PRN; -LIDOCAINE 1% SDV 5 ML VIAL As Ordered ONE; -LIDOCAINE 3.5 % 1ML OPHTH TOPICAL GEL OU ONE; -OFLOXACIN 0.3 % (OCUFLOX) OPTH SOL 5ML OS ONE; -PHENYLEPHRINE 2.5% OPHTH SOL 2ML OS ONE; -PHENYLEPHRINE HCL 10 % OPHTH. SOL 5ML OS PRN; -POVIDONE-IODINE 5% OPHTH PREP SOL 30ML As Ordered ONE; -PROPARACAINE 0.5% OPHTH SOL 15ML OS PRN; -TRIAMCINOLONE PRES FR 40 MG/ML 1ML(TRIESENCE)(OR EYE ONLY)(J3300 PER 1MG) As Ordered ONE; -TROPICAMIDE 1% OPHTH SOLN 2ML OS ONE
[2019-04-28 16:48] LABS: BLOOD UREA NITROGEN 14 MG/DL (7-18); CREATININE FOR GFR 0.74 MG/DL (0.55-1.30); GLOMERULAR FILTRATION RATE > 60.0 (>51)
== END ==
LOC: M WUC 13:37
PROVIDERS: ATTEND Neurological Surgery
DX: Z13.89 Encounter for screening for other disorder (principal); D32.9 Benign neoplasm of meninges, unspecified

== ENCOUNTER → 2019-10-20 | Outpatient (CLI) | payer BC ==
[~2019-10-20] MED LIST changes: -BUPR300T34 PO; +BUPR300T92 PO; -MONT10TA2 PO; +MONT10TA4 PO; +OMEP1CAP73 PO; -OMEP20CA4 PO; -ROPI1TAB PO; +ROPI1TAB3 PO; +ZONI100C17 PO; -ZONI100C2 PO
[2019-10-20 14:38] LABS: BLOOD UREA NITROGEN 22 MG/DL (7-18); CREATININE FOR GFR 0.76 MG/DL (0.55-1.30); GLOMERULAR FILTRATION RATE > 60.0 (>51)
== END ==
LOC: M WUC 12:15
PROVIDERS: ATTEND Neurological Surgery
DX: Z13.89 Encounter for screening for other disorder (principal); D32.9 Benign neoplasm of meninges, unspecified

== ENCOUNTER → 2019-11-05 | Outpatient (CLI) | payer BC ==
--- NOTE | 2019-11-05 14:21 | REP ---
LUMBOSACRAL SPINE: REASON FOR EXAM: Lower extremity radicular symptoms. COMPARISON EXAMINATION: 02/20/2016 FINDINGS: Five views of the lumbosacral spine show no acute fracture, dislocation or subluxation. The intervertebral disc spaces are symmetric and well maintained. There is no spondylolysis or spondylolisthesis. The pedicles are intact bilaterally and there is no destructive osseous lesion. IMPRESSION: Unremarkable lumbosacral spine series. No significant change from the prior exam. Electronically Signed by Poli Grayson DO 11/05/2019 02:49 P
--- NOTE | 2019-11-05 14:21 | REP ---
RIGHT HIP: TWO VIEWS. HISTORY: Sciatica. FINDINGS: AP and frog-leg views of the right hip demonstrate smooth rounded femoral head and intact hip joint space. There is superior acetabular spurring on the right indicating mild osteoarthritis. No bony destructive lesion is seen. Periarticular soft tissues are unremarkable. IMPRESSION: Mild right hip osteoarthritis. Otherwise negative. Electronically Signed by Herbert Stout MD 11/05/2019 04:16 P
== END ==
LOC: M WUC 10:16
PROVIDERS: ATTEND Nurse Practitioner Family
DX: M54.31 Sciatica, right side (principal); M16.11 Unilateral primary osteoarthritis, right hip

== ENCOUNTER → 2019-11-10 | Outpatient (CLI) | payer BC ==
--- NOTE | 2019-11-11 03:14 | REP ---
Clinical: Trauma. Technique: AP, lateral, bilateral oblique views left foot . Findings: The osseous structures and joint spaces are intact and there is no evidence for acute fracture or dislocation. Lateral view best demonstrates soft tissue swelling primarily overlying the metatarsal region. Generalized age-related changes are appreciated primarily involving the first toe. Lateral view demonstrates calcaneal heal spur. Surrounding soft tissues are otherwise unremarkable. No subcutaneous emphysema or radiodense foreign body. Impression: Soft tissue swelling. Generalized age-related changes. No acute fracture or dislocation. Electronically Signed by Cholo Verdin MD 11/11/2019 03:06 A
== END ==
LOC: M WUC 13:17
PROVIDERS: ATTEND Physician Assistant
DX: M79.672 Pain in left foot (principal); M79.89 Other specified soft tissue disorders

== ENCOUNTER → 2020-01-10 | Outpatient (REF) | payer BC | LOC: M WUC 07:05 | PROVIDERS: ATTEND Internal Medicine Rheumatology | DX: Z51.81 Encounter for therapeutic drug level monitoring (principal); R74.8 Abnormal levels of other serum enzymes; Z79.899 Other long term (current) drug therapy ==

== ENCOUNTER → 2020-11-03 | Outpatient (CLI) | payer OTHER ==
[~2020-11-03] MED LIST changes: +MONT10TA10 PO; -MONT10TA4 PO
[2020-11-03 15:05] LABS: BLOOD UREA NITROGEN 19 MG/DL (7-18); GLOMERULAR FILTRATION RATE > 60.0 (>51)
== END ==
LOC: M WUC 12:00
PROVIDERS: ATTEND Neurological Surgery
DX: D32.9 Benign neoplasm of meninges, unspecified (principal)

== ENCOUNTER → 2021-11-13 | Outpatient (CLI) | payer BC, OTHER ==
[~2021-11-13] MED LIST changes: -AZAT50TA2 PO; +AZAT50TA37 PO; -KLOR10TA76 PO; -MONT10TA10 PO; +MONT10TA97 PO; +POTA-136 PO; -ZONI100C17 PO; +ZONI100C67 PO
[2021-11-13 16:31] LABS: ALBUMIN 3.6 GM/DL (3.2-5.2); BLOOD UREA NITROGEN 16 MG/DL (7-18); CALCIUM LEVEL 9.3 MG/DL (8.5-10.1); CARBON DIOXIDE LEVEL 29 MEQ/L (21-32); CHLORIDE LEVEL 103 MEQ/L (98-107); CREATININE FOR GFR 0.81 MG/DL (0.55-1.30); GLOMERULAR FILTRATION RATE > 60.0 (>51); GLUCOSE, FASTING 93 MG/DL (70-100); POTASSIUM SERUM 3.3 MEQ/L (3.5-5.1); SODIUM LEVEL 137 MEQ/L (136-145); URIC ACID 8.3 MG/DL (2.6-6.0)
== END ==
LOC: M WUC 14:01
PROVIDERS: ATTEND Physician Assistant
DX: M79.672 Pain in left foot (principal)

== ENCOUNTER → 2022-03-04 | Outpatient (CLI) | payer BC, OTHER ==
[~2022-03-04] MED LIST changes: +ALLO100T PO; +BRIM0.2S13 OU; +CALCCAP4 PO; +COSE1INJ SC; +D3 H2000 PO; +DORZ2SOL5 OU; +FISH10005 PO; -FISH7.5C PO; +GABA-282 PO; +HYDR-3363 PO; +METF10004 PO; +PRAM0.754 PO; +PRED1TABL PO; +TRUL0.5I SC; +VILA40TA PO; +VITA-298 PO
== END ==
LOC: M LABSMTC 10:50
PROVIDERS: ATTEND Anesthesiology
DX: Z01.818 Encounter for other preprocedural examination (principal); Z11.52 Encounter for screening for COVID-19

== ENCOUNTER 2022-03-06 12:35 | Day surgery (SDC) | payer BC ==
[~2022-03-06] VITALS: Ht 157.5 cm; Wt 118.8 kg
[~2022-03-06 12:35] MED LIST changes: +CEFUROXIME 1MG/0.1ML INTRACAMERAL INJ As Ordered ONE; +LIDOCAINE 1% SDV 5ML VIAL As Ordered ONE; +LIDOCAINE 3.5 % 1ML OPHTH TOPICAL GEL OU ONE; +acetaZOLAMIDE 500MG ER CAP PO ONE
[2022-03-06] MEDS ORDERED: mitoMYcin 0.2 MG/VIAL KIT FOR OPHTHALMIC USE (J7315 PER 0.2MG) As Ordered ONE (12:56)
[2022-03-06] MEDS ORDERED: fentaNYL 100 MCG/2 ML INJECTION As Ordered ONE (13:51)
[2022-03-06] MEDS ORDERED: MIDAZOLAM INJ 2MG/2ML VIAL (J2250 PER 1MG) As Ordered ONE (13:51)
[2022-03-06] MEDS ORDERED: LIDOCAINE 3.5 % 1ML OPHTH TOPICAL GEL As Ordered ONE (13:54)
[2022-03-06] MEDS ORDERED: TOBRADEX OPHTH OINT 3.5 GM As Ordered ONE (14:00)
[2022-03-06 14:50] VITALS: BP 166/94
[2022-03-06] MEDS ORDERED: ONDANSETRON 4MG TAB PO PRN (15:45)
[2022-03-06] MEDS ORDERED: ACETAMINOPHEN 325 MG TAB PO PRN (15:45)
== END 2022-03-06 15:00 | disposition home or self-care (01) ==
LOC: M SDC 12:35
PROVIDERS: ATTEND Ophthalmology
DX: H40.9 Unspecified glaucoma (principal); I10 Essential (primary) hypertension; Z88.1 Allergy status to other antibiotic agents; Z88.8 Allergy status to other drugs, medicaments and biological substances
CPT/HCPCS: 66183; 93005; C1783; J2250; J3010; J7315

== ENCOUNTER → 2022-04-01 | Outpatient (CLI) | payer BC ==
[~2022-04-01] MED LIST changes: +BUPR1TAB56; -CEFUROXIME 1MG/0.1ML INTRACAMERAL INJ As Ordered ONE; +CVSTAB PO; +DOXY200C; -LIDOCAINE 1% SDV 5ML VIAL As Ordered ONE; -LIDOCAINE 3.5 % 1ML OPHTH TOPICAL GEL OU ONE; +RA M500C PO; +TIZA10TA; -acetaZOLAMIDE 500MG ER CAP PO ONE
== END ==
LOC: M LABSMTC 09:32
PROVIDERS: ATTEND Anesthesiology
DX: Z01.818 Encounter for other preprocedural examination (principal); Z11.52 Encounter for screening for COVID-19

== ENCOUNTER 2022-04-03 12:21 | Day surgery (SDC) | payer BC ==
[~2022-04-03] VITALS: Ht 157.5 cm; Wt 119.8 kg
[~2022-04-03 12:21] MED LIST changes: +CEFUROXIME 1MG/0.1ML INTRACAMERAL INJ As Ordered ONE; +LIDOCAINE 1% SDV 5ML VIAL As Ordered ONE; +LIDOCAINE 3.5 % 1ML OPHTH TOPICAL GEL OU ONE; +MIDAZOLAM INJ 2MG/2ML VIAL (J2250 PER 1MG) As Ordered ONE; +fentaNYL 100 MCG/2 ML INJECTION As Ordered ONE
[2022-04-03 13:00] LABS: HEMATOCRIT 40.5 % (36.0-47.0); HEMOGLOBIN 13.6 g/dl (12.0-15.5); MEAN CORPUSCULAR HEMOGLOBIN 32.4 pg (27.0-33.0); MEAN CORPUSCULAR HGB CONC 33.6 g/dl (32.0-36.5); MEAN CORPUSCULAR VOLUME 96.4 fl (80.0-96.0); PLATELET COUNT, AUTOMATED 273 10^3/uL (150-450); WHITE BLOOD COUNT 9.4 10^3/uL (4.0-10.0)
[2022-04-03 13:42] LABS: BLOOD UREA NITROGEN 13 MG/DL (7-18); CALCIUM LEVEL 8.9 MG/DL (8.5-10.1); CARBON DIOXIDE LEVEL 25 MEQ/L (21-32); CHLORIDE LEVEL 110 MEQ/L (98-107); GLOMERULAR FILTRATION RATE > 60.0 (>51); GLUCOSE, FASTING 128 MG/DL (70-100); SODIUM LEVEL 141 MEQ/L (136-145)
[2022-04-03] MEDS ORDERED: mitoMYcin 0.2 MG/VIAL KIT FOR OPHTHALMIC USE (J7315 PER 0.2MG) As Ordered ONE (14:58)
[2022-04-03] MEDS ORDERED: TOBRADEX OPHTH OINT 3.5 GM As Ordered ONE (15:07)
[2022-04-03 15:31] VITALS: BP 148/84
== END 2022-04-03 16:45 | disposition home or self-care (01) ==
LOC: M SDC 12:21
PROVIDERS: ATTEND Ophthalmology
DX: H40.9 Unspecified glaucoma (principal); E78.5 Hyperlipidemia, unspecified; I10 Essential (primary) hypertension; M79.7 Fibromyalgia; M10.9 Gout, unspecified; E11.9 Type 2 diabetes mellitus without complications; M31.5 Giant cell arteritis with polymyalgia rheumatica; E03.9 Hypothyroidism, unspecified; G43.909 Migraine, unspecified, not intractable, without status migrainosus; Z86.711 Personal history of pulmonary embolism; D66 Hereditary factor VIII deficiency; F33.9 Major depressive disorder, recurrent, unspecified; Z79.899 Other long term (current) drug therapy; Z79.84 Long term (current) use of oral hypoglycemic drugs; Z79.82 Long term (current) use of aspirin; Z79.52 Long term (current) use of systemic steroids; Z79.890 Hormone replacement therapy; Z88.1 Allergy status to other antibiotic agents; Z88.8 Allergy status to other drugs, medicaments and biological substances
CPT/HCPCS: 36415; 66183; 80048; 85027; C1783; J2250; J3010; J7315